=== PATIENT | male | born 1950 ===

== ENCOUNTER 2020-12-22 02:56 | Outpatient (CLI) | payer OTHER, SELFPAY ==
--- NOTE | 2020-12-22 12:55 | DI.RAD_ITS ---
Exam(s) XR CHEST 2V PA LATERAL EXAM: XR CHEST 2V PA LATERAL CLINICAL HISTORY: DYSPNEA, R06.00, SOB, R06.02. TECHNIQUE: 2D digital imaging was performed. COMPARISON: No exams were available for comparison FINDINGS: Heart size is normal. The mediastinum is not widened. Lungs are clear. No infiltrates nor obvious pleural effusions evident on the frontal view. However on the lateral view there is some pleural thickening noted posteriorly. Difficult to determine which side. IMPRESSION: Mild pleural thickening noted posteriorly on the lateral view. It is difficult to determine which si de as this is not evident on the frontal view.Comparison to any prior outside images would be helpful DATA REPOSITORY: RADIATION DOSE DELIVERED:
[2020-12-22] MEDS: Albuterol HFA 18 GM 200 PUFF INH IH (14:17)
[2020-12-22] MEDS: Inhaler, Assist Device 1 EACH MC (14:18)
--- NOTE | 2020-12-22 17:46 | W.PFT ---
Date of service: 12/22/20 Time of Service: 01:04 Pulmonary Function Test Result Interpretation Spirometry: Mild obstructive airways disease with no significant bronchodilator response Lung Volumes: Incomplete testing Diffusion Capacity: Mildly reduced, even when corrected to alveolar volume Airway Pressure: Not measured Impression Mild obstructive airways disease with no significant bronchodilator response, this is associated with mild diffusion defect Clinical Correlation therefore is recommended.
--- NOTE | 2020-12-22 17:48 | W.PFT ---
Date of service: 12/22/20 Time of Service: 01:04 Pulmonary Function Test Result Interpretation Spirometry: Mild obstructive airways disease, no bronchodilator testing was carried out Lung Volumes: Incomplete testing Diffusion Capacity: Mildly reduced even when corrected to alveolar volume Airway Pressure: Not measured Impression Mild obstructive airways disease, no bronchodilator testing was carried out, this is associated with mild diffusion defect Clinical Correlation therefore is recommended.
--- NOTE | 2021-03-07 14:00 | W.PFT ---
Date of service: 12/22/20 Time of Service: 13:04 Pulmonary Function Test Result Requesting Provider Raciel Polanco Indications: Disability determination Interpretation Spirometry: Moderate airflow limitaiton. No significant bronchodilator effect. Signficant obstructive disease is demonstrated on the volume time curve. Impression Moderate airflow obstruction Clinical Correlation therefore is recommended.
== END 2020-12-22 02:57 | disposition home or self-care (01) ==
PROVIDERS: Visit Provider Orthopaedic Surgery
DX: R06.00 Dyspnea, unspecified (principal); R06.02 Shortness of breath; R94.2 Abnormal results of pulmonary function studies
CPT/HCPCS: 94060; 71046